=== PATIENT | female | born 1965 | race Caucasian/White ===

== ENCOUNTER 2017-01-28 16:19 | Emergency (ER) | payer MEDICAID ==
--- NOTE | 2017-01-28 17:13 | ED Physician Chart ---
Chief Complaint/HPI - Patient Information Date Seen:: 01/28/17 Time Seen:: 16:55 Chief Complaint:: HERE FOR A KNEE IMOBILIZER History of Present Illness:: THIS IS A 51 YR OLD FEMALE WHO IS HERE BECAUSE HER ORTHOPEIC SURGEON WAS NOT IN THE OFFICE AND HE TOLD HER TO COME TO THE ER FOR A SPLINT OF KNEE IMMOBILIZER. SHE RECENTLY HAD PATELLA SURGERY. Allergies:: Allergies Allergy/AdvReac Type Severity Reaction Status Date / Time IV XRAY CONTRAST MEDIA Allergy Uncoded 01/28/17 16:39 Vitals:: Vital Signs - 8 hr 01/28/17 16:41 Temp 98.4 F HR 95 RR 19 BP 138/84 O2 Sat % 99 Historian:: Patient Review:: Nurse's Note Reviewed, Old Chart Reviewed Review of Systems - Review of Systems General/Constitutional: No fever, No chills, No weight loss, No weakness, No diaphoresis, No edema, No loss of appetite Skin: No skin lesions, No rash, No bruising Head: No headache, No light-headedness Eyes: No loss of vision, No pain, No diplopia ENT: No earache, No nasal drainage, No sore throat, No tinnitus Neck: No neck pain, No swelling, No thyromegaly, No stiffness, No mass noted Cardio Vascular: No chest pain, No palpitations, No PND, No orthopnea, No edema Pulmonary: No SOB, No cough, No sputum, No wheezing GI: No nausea, No vomiting, No diarrhea, No pain, No melena, No hematochezia, No constipation, No hematemesis G/U: No dysuria, No frequency, No hematuria Musculoskeletal: No bone or joint pain, No back pain, No muscle pain, Other ( KNEE PAIN) Endocrine: No polyuria, No polydipsia Psychiatric: No prior psych history, No depression, No anxiety, No suicidal ideation Hematopoietic: No bruising, No lymphadenopathy Allergic/Immuno: No urticaria, No angioedema Neurological: No syncope, No focal symptoms, No weakness, No paresthesia, No headache, No seizure, No dizziness, No confusion, No vertigo Past Medical History - Past Medical History Obtainable: Yes Past Medical History: HTN, Arthritis Family History: None Social History: Non Smoker, No Alcohol, No Drug Use, Single, Care Facility Surgical History: other (LEFT KNEE SURGERY) Physical Exam - Physical Examination General/Constitutional: Awake, Well-developed, well-nourished, Alert, No distress, GCS 15, Non-toxic appearing, Ambulatory Head: Atraumatic Eyes: Lids, conjuctiva normal, PERRL, EOMI Skin: Nl inspection, No rash, No skin lesions, No ecchymosis, Well hydrated, No lymphadenopathy ENMT: External ears, nose nl, Nasal exam nl, Lips, teeth, gums nl Neck: Nontender, Full ROM w/o pain, No JVD, No nuchal rigidity, No bruit, No mass, No stridor Respiratory: Nl effort/Exclusion, Clear to Auscultation, No Wheeze/Rhonchi/Rales Cardio Vascular: RRR, No murmur, gallop, rubs, NL S1 S2 GI: No tenderness/rebounding/guarding, No organomegaly, No hernia, Normal BS's, Nondistended, No mass/bruits, No McBurney tenderness : No CVA tenderness Extremities: No tenderness or effusion, Full ROM, normal strength in all extremities, No edema, Normal digits & nails Other Extremities comments:: HEALING CLEAN SCAR OVER THE PATTELLA SURGERY AREA. Neuro/Psych: Alert/oriented, DTR's symmetric, Normal sensory exam, Normal motor strength, Judgement/insight normal, Mood normal, Normal gait, No focal deficits Misc: normal gait, Normal back, No paraspinal tenderness Assessment - Assessment General Assessment: RESOLVING PATELLA SURGERY. ED Septic Shock - . Is Septic Shock (SBP<90, OR Lactate>4 mmol\L) present?: No - <6hrs of presentation: Vital Signs: Vital Signs - 8 hr 01/28/ 16:41 Temp 98.4 F HR 95 RR 19 BP 138/84 O2 Sat % 99 Reassessment (Disposition) - Reassessment Reassessment Condition:: Improved - Diagnosis Diagnosis:: LEFT KNEE FRACTURE - Aftercare/Follow up Instructions Aftercare/Follow-Up Instructions:: Counseled pt regarding lab results/diagnosis & need follow up, Refer to Discharge Instructions, Counseled pt & family regarding lab results/diagnosis & need follow up - Patient Disposition Discharge/Transfer:: Home Condition at Disposition:: Improved ED Discharge Plan - Patient Disposition Admit/Discharge/Transfer: PT DISCHARGED HOME Condition at Disposition: Improved
== END 2017-01-28 17:30 | disposition home or self-care (01) ==
LOC: ER 16:19
DX: S82.002A Unspecified fracture of left patella, initial encounter for closed fracture (principal); I10 Essential (primary) hypertension; X58.XXXA Exposure to other specified factors, initial encounter; Y93.89 Activity, other specified; Y92.89 Other specified places as the place of occurrence of the external cause; Y99.8 Other external cause status
CPT/HCPCS: 99283; 96372; 29505; J1885; Z7502

== ENCOUNTER 2018-09-17 16:14 | Emergency (ER) | payer MEDICAID ==
--- NOTE | 2018-09-17 16:51 | ED Physician Chart ---
ED Chief Complaint/HPI - Patient Information Date Seen:: 09/17/18 Time Seen:: 16:45 Chief Complaint:: lt 5th digit pain History of Present Illness:: 52 yr old female whose finger got caught on the dog caollar as she was running away Allergies:: Allergies Allergy/AdvReac Type Severity Reaction Status Date / Time codeine Allergy NAUSEA Verified 09/17/18 16:29 Iodine and Iodide Containing Allergy VOMITING Verified 09/17/18 16:29 Produc IV XRAY CONTRAST MEDIA Allergy Uncoded 01/28/17 16:39 Vitals:: Vital Signs - 8 hr 09/17/18 16:20 Temp 98.0 F HR 77 RR 18 BP 109/64 O2 Sat % 95 ED Review of Systems - Review of Systems General/Constitutional: No fever, No chills, No weight loss, No weakness, No diaphoresis, No edema, No loss of appetite Skin: Skin lesions (bruising on lt 5th finger and swelling), No rash, Bruising Head: No headache, No light-headedness Eyes: No loss of vision, No pain, No diplopia ENT: No earache, No nasal drainage, No sore throat, No tinnitus Neck: No neck pain, No swelling, No thyromegaly, No stiffness, No mass noted Cardio Vascular: No chest pain, No palpitations, No PND, No orthopnea, No edema Pulmonary: No SOB, No cough, No sputum, No wheezing GI: No nausea, No vomiting, No diarrhea, No pain, No melena, No hematochezia, No constipation, No hematemesis G/U: No dysuria, No frequency, No hematuria Musculoskeletal: No bone or joint pain, No back pain, No muscle pain Endocrine: No polyuria, No polydipsia Psychiatric: No prior psych history, No depression, No anxiety, No suicidal ideation Hematopoietic: No bruising, No lymphadenopathy Allergic/Immuno: No urticaria, No angioedema Neurological: No syncope, No focal symptoms, No weakness, No paresthesia, No headache, No seizure, No dizziness, No confusion, No vertigo ED Past Medical History - Past Medical History Past Medical History: Asthma/COPD (chrons), Other (chrons copd) Surgical History: Hernia Family Medical History - Family Member Mother History Unknown: Yes Age: 73 Ethnicity: Non- Living Status: Still Living Hx Family Cancer: Yes (Heart valve) Father Age: 76 Ethnicity: Non- Living Status: Still Living Hx Family Hypertension: Yes Hx Family Diabetes: Yes Other Medical History: Crohn's Brother Age: 44 Ethnicity: Non- Living Status: Still Living Hx Family Cancer: Yes (Multiple Myeloma) ED Physical Exam - Physical Examination General/Constitutional: Well-developed, well-nourished, Alert, No distress Eyes: Lids, conjuctiva normal Skin: Nl inspection ENMT: External ears, nose nl Neck: Full ROM w/o pain Respiratory: Nl effort/Exclusion Cardio Vascular: RRR, No murmur, gallop, rubs GI: No tenderness/rebounding/guarding : No CVA tenderness Other Extremities comments:: 5th finger swelling bruising slightly crooked and tenderness to palpation Neuro/Psych: Alert/oriented ED Septic Shock - . Is Septic Shock (SBP<90, OR Lactate>4 mmol\L) present?: No - <6hrs of presentation: Vital Signs: Vital Signs - 8 hr // 16:20 Temp 98.0 F HR 77 RR 18 BP 109/64 O2 Sat % 95 ED Reassessment (Disposition) - Reassessment Reassessment:: finger contusion lt hand - Diagnosis Diagnosis:: as above - Patient Disposition Discharge/Transfer:: Home Condition at Disposition:: Stable
--- NOTE | 2018-09-18 07:18 | Diagnostic Imaging Report ---
Exam: Left hand x-ray HISTORY: Trauma Findings: Portable examination of the left hand at 1749 reviewed. The study demonstrates plating of the distal left radius. There is no evidence for acute fracture dislocation of soft tissue swelling. IMPRESSION: Essentially unremarkable examination of left hand.
== END 2018-09-17 18:23 | disposition home or self-care (01) ==
LOC: ER 16:14
DX: S62.627A Displaced fracture of middle phalanx of left little finger, initial encounter for closed fracture (principal); J44.9 Chronic obstructive pulmonary disease, unspecified; Z98.890 Other specified postprocedural states; Z88.5 Allergy status to narcotic agent; Z91.041 Radiographic dye allergy status; X58.XXXA Exposure to other specified factors, initial encounter; Y93.89 Activity, other specified; Y92.89 Other specified places as the place of occurrence of the external cause; Y99.8 Other external cause status
CPT/HCPCS: 99283; 29130; 73120; 96372; J1885; Z7502; Z7610